=== PATIENT | male | born 1945 | race Caucasian/White ===

== ENCOUNTER 2021-08-17 09:38 | Outpatient (CLI) | payer MEDICARE, BC | END 2021-08-17 23:59 | disposition home or self-care (01) | LOC: RAD 09:38 | PROVIDERS: ATTEND Psychiatry & Neurology Neurology | DX: S06.9X0S Unspecified intracranial injury without loss of consciousness, sequela (principal); R41.3 Other amnesia; G40.209 Localization-related (focal) (partial) symptomatic epilepsy and epileptic syndromes with complex partial seizures, not intractable, without status epilepticus; X58.XXXS Exposure to other specified factors, sequela | CPT/HCPCS: 95816 ==

== ENCOUNTER 2022-10-31 11:31 | Emergency (ER) | payer MEDICARE, BC ==
[~2022-10-31] VITALS: Ht 177.8 cm; Wt 95.2 kg
[2022-10-31 11:40] VITALS: BP 117/63
--- NOTE | 2022-10-31 11:46 | NUR ---
DR. HOANG AT BEDSIDE
[2022-10-31 12:14] LABS: BASOPHILS # (AUTO) 0.1 X10'3 (0-0.2); EOSINOPHILS # (AUTO) 0.9 X10'3 (0-0.9); HEMOGLOBIN 14.8 g/dl (14.0-17.9); LYMPHOCYTES # (AUTO) 2.2 X10'3 (1.1-4.8); LYMPHOCYTES % (AUTO) 28.8 % (21-51); MEAN CORPUSCULAR HEMOGLOBIN 31.5 PG (27.0-31.0); MEAN CORPUSCULAR HGB CONC 33.6 g/dL (33.0-36.5); MEAN CORPUSCULAR VOLUME 93.9 FL (78-98); MEAN PLATELET VOLUME 6.9 FL (7.4-10.4); MONOCYTES # (AUTO) 0.8 X10'3 (0-0.9); MONOCYTES % (AUTO) 10.9 % (2-12); NEUTROPHILS # (AUTO) 3.6 X10'3 (1.8-7.7); NEUTROPHILS % (AUTO) 47.3 % (42-75); PLATELET COUNT 311 X10'3 (140-440); RED BLOOD COUNT 4.69 X10'6 (4.70-6.10); RED CELL DISTRIBUTION WIDTH 13.9 % (11.5-14.5); WHITE BLOOD COUNT 7.5 X10'3 (4.5-11.0)
[2022-10-31 12:27] LABS: ALANINE AMINOTRANSFERASE 28 U/L (12-78); ALBUMIN 3.3 G/DL (3.4-5.0); ALBUMIN/GLOBULIN RATIO 0.8 (1.1-1.5); ALKALINE PHOSPHATASE 96 IU/L (46-116); ANION GAP 8 (8-16); ASPARTATE AMINO TRANSFERASE 22 U/L (10-37); BILIRUBIN,TOTAL 0.4 MG/DL (0.1-1.0); BLOOD UREA NITROGEN 17 MG/DL (7-18); BUN/CREATININE RATIO 17.2 (10.0-20.0); CHLORIDE 104 MMOL/L (99-107); CREATININE 0.99 MG/DL (0.60-1.10); GLUCOSE 96 MG/DL (70-104); POTASSIUM 4.3 MMOL/L (3.5-5.1); SODIUM 138 MMOL/L (135-145); TOTAL CARBON DIOXIDE 26.2 MMOL/L (24-32); TOTAL PROTEIN 7.5 G/DL (6.4-8.2); eGFR 73 ML/MIN
[2022-10-31 12:48] LABS: CLARITY,URINE CLOUDY (Clear); COLOR,URINE YELLOW (Yellow); GLUCOSE, URINE NEGATIVE (Neg); KETONES,URINE NEGATIVE (Neg); LEUKOCYTE ESTERASE ,URINE LARGE (Neg); NITRITES, URINE NEGATIVE (Neg); OCCULT BLOOD,URINE TRACE-INTACT (Neg); PH,URINE 7.5 (4.8-8.0); PROTEIN,URINE NEGATIVE (Neg); UROBILINOGEN,URINE 0.2 E.U/dL (0.2-1.0)
[2022-10-31 12:54] LABS: UA COLLECTION TYPE CONDOM CATH
[2022-10-31 12:55] LABS: WBC,URINE TNTC /HPF (0-4)
[2022-10-31 12:56] LABS: BACTERIA,URINE 4+ /HPF (Neg); SQUAMOUS EPITHELIAL CELL,UR FEW /LPF (FEW)
[2022-10-31] MEDS ORDERED: CefTRIAXone 2gm/D5W 50ml BAG 50 ML IV ONE (14:25)
[2022-10-31] MEDS ORDERED: ondansetron/PF 4mg/2ml inj IV ONE (14:55)
[2022-10-31] MEDS ORDERED: morphine 4 MG/ML inj SYRINge IV ONE (14:55)
[2022-10-31] MEDS ORDERED: SULF1TAB49 PO (15:00)
[2022-10-31] MEDS ORDERED: HYDR-3965 PO (15:00)
[2022-10-31] MEDS ORDERED: BACL-11 PO (15:00)
== END 2022-10-31 17:26 | disposition home or self-care (01) ==
LOC: ER 11:32
DX: N39.0 Urinary tract infection, site not specified (principal); Z88.8 Allergy status to other drugs, medicaments and biological substances
CPT/HCPCS: 36415; 80053; 81001; 83605; 84145; 85025; 87040; 87088; 87186; 96365; 96375; 99284; J0696; J2270; J2405; 87077

== ENCOUNTER 2022-11-10 12:18 | Emergency (ER) | payer MEDICARE, BC ==
[~2022-11-10] VITALS: Ht 176.5 cm; Wt 100.0 kg
[~2022-11-10 12:18] MED LIST: BACL-11 PO; HYDR-3965 PO
[2022-11-10 12:19] VITALS: BP 118/69
[2022-11-10] MEDS ORDERED: normal saline 1000ML IV soln IVB ONE (12:55)
[2022-11-10 13:00] LABS: BASOPHILS # (AUTO) 0.1 X10'3 (0-0.2); BASOPHILS % (AUTO) 1.2 % (0-1); EOSINOPHILS # (AUTO) 0.6 X10'3 (0-0.9); EOSINOPHILS % (AUTO) 9.3 % (0-6); HEMATOCRIT 42.1 % (42.0-52.0); HEMOGLOBIN 13.9 g/dl (14.0-17.9); LYMPHOCYTES # (AUTO) 1.8 X10'3 (1.1-4.8); LYMPHOCYTES % (AUTO) 26.5 % (21-51); MEAN CORPUSCULAR HEMOGLOBIN 30.9 PG (27.0-31.0); MEAN CORPUSCULAR HGB CONC 32.9 g/dL (33.0-36.5); MEAN CORPUSCULAR VOLUME 93.8 FL (78-98); MONOCYTES # (AUTO) 0.7 X10'3 (0-0.9); MONOCYTES % (AUTO) 10.4 % (2-12); NEUTROPHILS # (AUTO) 3.6 X10'3 (1.8-7.7); NEUTROPHILS % (AUTO) 52.6 % (42-75); PLATELET COUNT 264 X10'3 (140-440); RED BLOOD COUNT 4.49 X10'6 (4.70-6.10); RED CELL DISTRIBUTION WIDTH 13.8 % (11.5-14.5); WHITE BLOOD COUNT 6.8 X10'3 (4.5-11.0)
[2022-11-10 13:13] LABS: ALANINE AMINOTRANSFERASE 38 U/L (12-78); ALBUMIN 3.2 G/DL (3.4-5.0); ALBUMIN/GLOBULIN RATIO 0.8 (1.1-1.5); ALKALINE PHOSPHATASE 88 IU/L (46-116); ANION GAP 6 (8-16); ASPARTATE AMINO TRANSFERASE 24 U/L (10-37); BILIRUBIN,TOTAL 0.4 MG/DL (0.1-1.0); BLOOD UREA NITROGEN 14 MG/DL (7-18); BUN/CREATININE RATIO 13.1 (10.0-20.0); CALCIUM 8.9 MG/DL (8.5-10.1); CHLORIDE 104 MMOL/L (99-107); CREATININE 1.07 MG/DL (0.60-1.10); GLUCOSE 91 MG/DL (70-104); LIPASE 68 U/L (73-393); POTASSIUM 4.1 MMOL/L (3.5-5.1); SODIUM 139 MMOL/L (135-145); TOTAL CARBON DIOXIDE 29.1 MMOL/L (24-32); TOTAL PROTEIN 7.3 G/DL (6.4-8.2); eGFR 67 ML/MIN
[2022-11-10 14:13] LABS: CLARITY,URINE CLEAR (Clear); COLOR,URINE YELLOW (Yellow); GLUCOSE, URINE NEGATIVE (Neg); KETONES,URINE NEGATIVE (Neg); LEUKOCYTE ESTERASE ,URINE NEGATIVE (Neg); NITRITES, URINE NEGATIVE (Neg); OCCULT BLOOD,URINE NEGATIVE (Neg); PROTEIN,URINE NEGATIVE (Neg); UA COLLECTION TYPE CLN CATCH MIDSTREAM; UROBILINOGEN,URINE 0.2 E.U/dL (0.2-1.0)
== END 2022-11-10 15:27 | disposition home or self-care (01) ==
LOC: ER 12:19
DX: N48.89 Other specified disorders of penis (principal); M79.89 Other specified soft tissue disorders
CPT/HCPCS: 36415; 80053; 81003; 83605; 83690; 85025; 99283; J7030

== ENCOUNTER 2023-04-19 15:30 | Emergency (ER) | payer MEDICARE, BC ==
[~2023-04-19] VITALS: Ht 175.3 cm; Wt 93.2 kg
[~2023-04-19 15:30] MED LIST changes: -HYDR-3965 PO; +NITR100C6 PO; +PHEN-786 PO
[2023-04-19 15:36] VITALS: TEMP 98.3
[2023-04-19 16:24] LABS: BASOPHILS # (AUTO) 0.1 X10'3 (0-0.2); BASOPHILS % (AUTO) 0.8 % (0-1); EOSINOPHILS # (AUTO) 0.7 X10'3 (0-0.9); EOSINOPHILS % (AUTO) 9.7 % (0-6); HEMATOCRIT 37.9 % (42.0-52.0); HEMOGLOBIN 12.8 g/dl (14.0-17.9); LYMPHOCYTES # (AUTO) 2.2 X10'3 (1.1-4.8); LYMPHOCYTES % (AUTO) 30.1 % (21-51); MEAN CORPUSCULAR HEMOGLOBIN 31.2 PG (27.0-31.0); MEAN CORPUSCULAR HGB CONC 33.7 g/dL (33.0-36.5); MEAN CORPUSCULAR VOLUME 92.6 FL (78-98); MEAN PLATELET VOLUME 7.6 FL (7.4-10.4); MONOCYTES # (AUTO) 0.9 X10'3 (0-0.9); MONOCYTES % (AUTO) 11.7 % (2-12); NEUTROPHILS # (AUTO) 3.5 X10'3 (1.8-7.7); NEUTROPHILS % (AUTO) 47.7 % (42-75); PLATELET COUNT 234 X10'3 (140-440); RED BLOOD COUNT 4.09 X10'6 (4.70-6.10); RED CELL DISTRIBUTION WIDTH 14.3 % (11.5-14.5); WHITE BLOOD COUNT 7.3 X10'3 (4.5-11.0)
[2023-04-19 16:36] LABS: ALANINE AMINOTRANSFERASE 13 U/L (12-78); ALBUMIN 2.8 G/DL (3.4-5.0); ALBUMIN/GLOBULIN RATIO 0.7 (1.1-1.5); ALKALINE PHOSPHATASE 67 IU/L (46-116); ANION GAP 7 (8-16); ASPARTATE AMINO TRANSFERASE 10 U/L (10-37); BILIRUBIN,TOTAL 0.2 MG/DL (0.1-1.0); BLOOD UREA NITROGEN 24 MG/DL (7-18); BUN/CREATININE RATIO 23.5 (10.0-20.0); CHLORIDE 104 MMOL/L (99-107); CREATININE 1.02 MG/DL (0.60-1.10); GLUCOSE 103 MG/DL (70-104); LIPASE < 50 U/L (73-393); POTASSIUM 4.2 MMOL/L (3.5-5.1); SODIUM 137 MMOL/L (135-145); TOTAL CARBON DIOXIDE 26.4 MMOL/L (24-32); TOTAL PROTEIN 6.9 G/DL (6.4-8.2); eCRCL 62 ML/MIN; eGFR 71 ML/MIN
[2023-04-19 16:45] LABS: CALCIUM 8.6 MG/DL (8.5-10.1)
[2023-04-19 17:43] LABS: BILIRUBIN,URINE NEGATIVE (Neg); CLARITY,URINE CLOUDY (Clear); COLOR,URINE YELLOW (Yellow); GLUCOSE, URINE NEGATIVE (Neg); KETONES,URINE TRACE mg/dl (Neg); LEUKOCYTE ESTERASE ,URINE LARGE (Neg); NITRITES, URINE NEGATIVE (Neg); OCCULT BLOOD,URINE MODERATE (Neg); PROTEIN,URINE 100 mg/dl (Neg)
--- NOTE | 2023-04-19 17:44 | NUR ---
Chava luciano in [facility] - 04/19/23 at 1745 by GT PT SLEEPING QUIETLY RESPS EVEN UNLABORED TROP NOTED AT 51 PROVIDER AWARE NEW ORDERS RECEIVED AND IMPLEMENTED
[2023-04-19 18:01] LABS: UA COLLECTION TYPE NON-SPECIFIED
[2023-04-19 18:02] LABS: WBC,URINE TNTC /HPF (0-4)
[2023-04-19 18:03] LABS: BACTERIA,URINE 2+ /HPF (Neg); SQUAMOUS EPITHELIAL CELL,UR FEW /LPF (FEW)
[2023-04-19 21:27] VITALS: BP 132/71; PULSE 59; RESP 15; O2SAT 91
[2023-04-19] MEDS ORDERED: LidoCAINE 2% Topical Jelly 11mL syringe TOP ONE (22:15)
[2023-04-19] MEDS ORDERED: ketoconazole 2% cream 15gm TP ONE (22:15)
[2023-04-19] MEDS ORDERED: CefTRIAXone 1000mg IM Kit (w/lidocaine diluent) IM ONE (22:15)
[2023-04-19] MEDS ORDERED: CLOT30CR24 TOP (22:21)
[2023-04-19] MEDS ORDERED: FOSF3PAC PO (22:21)
[2023-04-19] MEDS ORDERED: fentaNYL/PF 50MCG/1 ML 2ML syringe IV ONE (23:10)
[2023-04-19] MEDS ORDERED: ondansetron/PF 4mg/2ml inj IV ONE (23:10)
--- NOTE | 2023-04-19 23:10 | NUR ---
spear placed per protocol, irrigation started per providers verbal order
--- NOTE | 2023-04-20 00:46 | NUR ---
[facility] ADMIN PER ORDER BY RN WHO REPORTED OFF TO THIS NURSE.
== END 2023-04-20 00:48 | disposition home or self-care (01) ==
LOC: ER 15:31
DX: N39.0 Urinary tract infection, site not specified (principal); G89.29 Other chronic pain; G82.50 Quadriplegia, unspecified; Z98.890 Other specified postprocedural states; Z88.8 Allergy status to other drugs, medicaments and biological substances; Z79.899 Other long term (current) drug therapy; Z87.440 Personal history of urinary (tract) infections
CPT/HCPCS: 36415; 80053; 81001; 83690; 85025; 87077; 87088; 87186; 96372; 99284; J0696; A4314

== ENCOUNTER 2023-06-15 17:16 | Emergency (ER) | payer MEDICARE, BC ==
[~2023-06-15] VITALS: Ht 172.7 cm; Wt 88.6 kg
[~2023-06-15 17:16] MED LIST changes: +CLOT30CR24 TOP; +FOSF3PAC PO
[2023-06-15] MEDS ORDERED: CefTRIAXone 1000mg IM Kit (w/lidocaine diluent) IM ONE (17:20)
[2023-06-15] MEDS ORDERED: LidoCAINE 2% Topical Jelly 11mL syringe TOP ONE (17:20)
[2023-06-15] MEDS ORDERED: morphine 4 MG/ML inj SYRINge IV ONE (17:45)
[2023-06-15] MEDS ORDERED: morphine 10mg/ml inj. IM ONE (18:05)
[2023-06-15 18:31] LABS: BASOPHILS % (AUTO) 0.5 % (0-1); EOSINOPHILS # (AUTO) 0.5 X10'3 (0-0.9); EOSINOPHILS % (AUTO) 7.5 % (0-6); HEMATOCRIT 40.9 % (42.0-52.0); HEMOGLOBIN 13.9 g/dl (14.0-17.9); LYMPHOCYTES % (AUTO) 28.4 % (21-51); MEAN CORPUSCULAR HEMOGLOBIN 31.4 PG (27.0-31.0); MEAN CORPUSCULAR HGB CONC 33.9 g/dL (33.0-36.5); MEAN CORPUSCULAR VOLUME 92.7 FL (78-98); MEAN PLATELET VOLUME 7.4 FL (7.4-10.4); MONOCYTES # (AUTO) 0.9 X10'3 (0-0.9); MONOCYTES % (AUTO) 12.6 % (2-12); NEUTROPHILS # (AUTO) 3.7 X10'3 (1.8-7.7); PLATELET COUNT 217 X10'3 (140-440); RED BLOOD COUNT 4.41 X10'6 (4.70-6.10); RED CELL DISTRIBUTION WIDTH 15.2 % (11.5-14.5); WHITE BLOOD COUNT 7.2 X10'3 (4.5-11.0)
[2023-06-15 18:52] LABS: ALANINE AMINOTRANSFERASE 15 U/L (12-78); ALBUMIN/GLOBULIN RATIO 0.7 (1.1-1.5); ALKALINE PHOSPHATASE 81 IU/L (46-116); ANION GAP 7 (8-16); ASPARTATE AMINO TRANSFERASE 15 U/L (10-37); BILIRUBIN,TOTAL 0.5 MG/DL (0.1-1.0); BLOOD UREA NITROGEN 22 MG/DL (7-18); BUN/CREATININE RATIO 20.8 (10.0-20.0); CALCIUM 9.3 MG/DL (8.5-10.1); CHLORIDE 102 MMOL/L (99-107); CREATININE 1.06 MG/DL (0.60-1.10); GLUCOSE 97 MG/DL (70-104); POTASSIUM 4.2 MMOL/L (3.5-5.1); SODIUM 136 MMOL/L (135-145); TOTAL CARBON DIOXIDE 27.4 MMOL/L (24-32); TOTAL PROTEIN 7.4 G/DL (6.4-8.2); eCRCL 57 ML/MIN; eGFR 68 ML/MIN
[2023-06-15] MEDS ORDERED: LEVO-65 PO (19:30)
[2023-06-15] MEDS ORDERED: levoFLOXACIN 250mg tablet PO ONE (19:30)
[2023-06-15 19:38] LABS: BILIRUBIN,URINE SMALL (Neg); CLARITY,URINE CLOUDY (Clear); GLUCOSE, URINE NEGATIVE (Neg); KETONES,URINE TRACE mg/dl (Neg); LEUKOCYTE ESTERASE ,URINE SMALL (Neg); OCCULT BLOOD,URINE MODERATE (Neg); PROTEIN,URINE >=300 mg/dl (Neg)
[2023-06-15 19:49] LABS: COLOR,URINE DARK YELLOW (Yellow); NITRITES, URINE NEGATIVE (Neg); UA COLLECTION TYPE FOLEY CATH
[2023-06-15 19:58] LABS: HYALINE CASTS 0-3 /LPF (NEGATIVE); RBC,URINE TNTC /HPF (0-2); RENAL CELLS, URINE MODERATE /HPF; SQUAMOUS EPITHELIAL CELL,UR FEW /LPF (FEW)
[2023-06-15 19:59] LABS: MUCUS STRANDS MANY /LPF (Neg)
[2023-06-15 20:00] LABS: WBC,URINE TNTC /HPF (0-4)
[2023-06-15 20:01] LABS: WBC CLUMPS,URINE FEW /HPF (NEGATIVE)
[2023-06-15 20:03] LABS: BACTERIA,URINE 3+ /HPF (Neg)
[2023-06-15 20:04] LABS: TRANSITIONAL EPI CELLS,URINE FEW /HPF
[2023-06-15 21:24] VITALS: BP 140/86; PULSE 86; RESP 18; TEMP 98.4; O2SAT 95
--- NOTE | 2023-06-15 23:05 | NUR ---
I have reviewed and agree with all interventions, assessments performed and documented by Domonique ORTEGA.
== END 2023-06-15 21:28 | disposition home or self-care (01) ==
LOC: ER 17:17
DX: T83.091A Other mechanical complication of indwelling urethral catheter, initial encounter (principal); N39.0 Urinary tract infection, site not specified; G89.29 Other chronic pain; M54.9 Dorsalgia, unspecified; Z79.899 Other long term (current) drug therapy
CPT/HCPCS: 36415; 51702; 80053; 81001; 85025; 87088; 96372; 99284; J0696; J2274; A4358

== ENCOUNTER 2023-06-20 08:59 | Emergency (ER) | payer OTHER, MEDICARE, BC ==
[~2023-06-20] VITALS: Ht 175.3 cm; Wt 91.8 kg
[~2023-06-20 08:59] MED LIST changes: +LEVO-65 PO
[2023-06-20] MEDS ORDERED: LidoCAINE 2% Topical Jelly 11mL syringe TOP ONE (11:05)
[2023-06-20] MEDS ORDERED: ringers solution, lacted 1,000 ML IV ONE (11:05)
[2023-06-20] MEDS ORDERED: morphine 2 MG/ML inj. syringe IV ONE (11:05)
[2023-06-20] MEDS ORDERED: ondansetron/PF 4mg/2ml inj IV ONE (11:05)
--- NOTE | 2023-06-20 11:05 | NUR ---
MAGDALENO BAG REPLACED
[2023-06-20 12:12] LABS: ALANINE AMINOTRANSFERASE 12 U/L (12-78); ALBUMIN 2.8 G/DL (3.4-5.0); ALBUMIN/GLOBULIN RATIO 0.6 (1.1-1.5); ALKALINE PHOSPHATASE 70 IU/L (46-116); ANION GAP 7 (8-16); BILIRUBIN,TOTAL 0.6 MG/DL (0.1-1.0); BLOOD UREA NITROGEN 19 MG/DL (7-18); BUN/CREATININE RATIO 17.9 (10.0-20.0); CALCIUM 8.9 MG/DL (8.5-10.1); CHLORIDE 101 MMOL/L (99-107); CREATININE 1.06 MG/DL (0.60-1.10); GLUCOSE 91 MG/DL (70-104); SODIUM 135 MMOL/L (135-145); TOTAL CARBON DIOXIDE 26.9 MMOL/L (24-32); TOTAL PROTEIN 7.3 G/DL (6.4-8.2); eCRCL 59 ML/MIN; eGFR 68 ML/MIN
[2023-06-20 12:21] LABS: ASPARTATE AMINO TRANSFERASE 26 U/L (10-37); POTASSIUM 4.8 MMOL/L (3.5-5.1)
--- NOTE | 2023-06-20 12:22 | NUR ---
spear catheter removed
[2023-06-20 13:37] LABS: BASOPHILS % (AUTO) 0.6 % (0-1); EOSINOPHILS # (AUTO) 0.2 X10'3 (0-0.9); EOSINOPHILS % (AUTO) 2.7 % (0-6); HEMATOCRIT 33.2 % (42.0-52.0); HEMOGLOBIN 10.9 g/dl (14.0-17.9); LYMPHOCYTES % (AUTO) 16.4 % (21-51); MEAN CORPUSCULAR HEMOGLOBIN 30.8 PG (27.0-31.0); MEAN CORPUSCULAR HGB CONC 32.7 g/dL (33.0-36.5); MEAN CORPUSCULAR VOLUME 94.1 FL (78-98); MEAN PLATELET VOLUME 7.6 FL (7.4-10.4); MONOCYTES # (AUTO) 0.9 X10'3 (0-0.9); NEUTROPHILS # (AUTO) 3.8 X10'3 (1.8-7.7); NEUTROPHILS % (AUTO) 64.3 % (42-75); PLATELET COUNT 160 X10'3 (140-440); RED BLOOD COUNT 3.52 X10'6 (4.70-6.10); RED CELL DISTRIBUTION WIDTH 15.1 % (11.5-14.5); WHITE BLOOD COUNT 5.9 X10'3 (4.5-11.0)
[2023-06-20 14:11] LABS: PLATELET ESTIMATE NORMAL; TOTAL CELLS COUNTED 100
--- NOTE | 2023-06-20 14:20 | NUR ---
MAGDALENO DC AND PT WAS ABLE TO VOID INDEPENDENTLY
[2023-06-20 15:37] LABS: CLARITY,URINE SLIGHTLY CLOUDY (Clear); COLOR,URINE ORANGE (Yellow); UA COLLECTION TYPE URINAL
[2023-06-20 15:40] LABS: MUCUS STRANDS MANY /LPF (Neg); SQUAMOUS EPITHELIAL CELL,UR MODERATE /LPF (FEW)
[2023-06-20 15:41] LABS: HYALINE CASTS 0-3 /LPF (NEGATIVE)
[2023-06-20 15:42] LABS: RBC,URINE 20-50 /HPF (0-2)
[2023-06-20 15:44] LABS: BACTERIA,URINE NONE SEEN /HPF (Neg)
[2023-06-20 15:46] LABS: TRANSITIONAL EPI CELLS,URINE FEW /HPF
[2023-06-20] MEDS ORDERED: CEPH-585 PO (16:23)
[2023-06-20 17:04] VITALS: BP 112/69; PULSE 75; RESP 18; TEMP 98.4; O2SAT 94
== END 2023-06-20 17:16 | disposition home or self-care (01) ==
LOC: ER 09:00
DX: T83.098A Other mechanical complication of other urinary catheter, initial encounter (principal); Z88.8 Allergy status to other drugs, medicaments and biological substances; Z79.1 Long term (current) use of non-steroidal anti-inflammatories (NSAID); Z79.899 Other long term (current) drug therapy
CPT/HCPCS: 36415; 80053; 81001; 85007; 85025; 87088; 96361; 96374; 96375; 99284; J2270; J2405; J7120; A6213